=== PATIENT | female | born 1960 | race Caucasian/White ===

== ENCOUNTER 2016-09-12 12:16 | Emergency (ER) | payer OTHER ==
[~2016-09-12] VITALS: Ht 154.9 cm; Wt 96.2 kg
[~2016-09-12 12:16] MED LIST: BUPR150CR PO; PRED20 PO; QUET1TAB10 PO; ZITHTAB PO
[2016-09-12 12:25] VITALS: BP 129/74; PULSE 64; RESP 16; TEMP 98.7; O2SAT 99
[2016-09-12] MEDS ORDERED: AUGM875T PO (13:31)
--- NOTE | 2016-09-12 13:31 | PD ---
HPI Chief Complaint: ENT Complaint Time Seen by Provider: 13:31 Travel History International Travel<30 days: No Contact w/Intl Traveler<30days: No Traveled to known affect area: No History of Present Illness HPI Patient is a 55-year-old female presenting with chief complaint of "I have another sinus infection ". She states she has a history of asthma and frequently this will go down into her chest and cause a bronchitis and asthma flare. She denies any cough or wheezing or asthma-type symptoms. She states that the symptoms have been mild for 4 days but worse over the last 3. Thick purulent rhinorrhea, greater out of the right nostril the left. She reports her maxillary and frontal pressure, worse on the right. She denies fever, chills, nausea or vomiting. She denies chest pain. She was treated 2-3 months prior for similar problem. PFSH Past Medical History Asthma: Yes Bipolar Disorder: Yes Depression: Yes (BIPOLAR) Cancer: No Cardiovascular Problems: Yes Diabetes: No Diminished Hearing: No Headaches: No Herniated Disk: Yes Musculoskeletal: Yes (SCIATIC NERVE PAIN. (CHRONIC)) Psychiatric: Yes (Reported history of treatment for bipolar disorder) Respiratory: Yes (ASTHMA) Integumentary: Yes (HX OF MRSA TO LOW BACK) Seizures: No Thyroid Disease: Yes (HYPO) Ulcer: Yes Influenza Vaccination: No ?: Not Menopausal: Yes Past Surgical History Abdominal Surgery: Yes (PARTIAL GASTRECTOMY) Appendectomy: Yes Cholecystectomy: Yes Neurologic Surgery: Yes (LUMBAR LAMINECTOMY 2004) Other Surgery: Yes ("ULCER SURGERY" 1988) Social History Alcohol Use: Yes ("SOCIALLY") Tobacco Use: No Substance Use: Yes (PSA) Allergies-Medications (Allergen,Severity, Reaction): Coded Allergies: Influenza Virus Vaccine (Verified Allergy, Severe, L arm swollen, 09/12/16) Reglan (Verified Allergy, Severe, Anaphylaxis, 09/12/16) Codeine (Verified Allergy, Intermediate, nausea, 09/12/16) *MDRO Multi-Drug Resistant Organism (Unverified Adverse Reaction, Unknown , 09/12/16) MRSA Reported Meds & Prescriptions Reported Meds & Active Scripts Active Augmentin (Amoxicillin-Clavulanate) 875-125 mg Tab 875 Mg PO BID not for use in CrCl <30 ml/min. Review of Systems Except as stated in HPI: all other systems reviewed are Neg Physical Exam Narrative GENERAL: Well-developed and well-nourished adult female in no acute distress. SKIN: Warm and dry. Good turgor without tenting. HEAD: Normocephalic and atraumatic. EYES: PERRL bilaterally, 5mm. EOMI bilaterally. No injection or icterus present. No proptosis. Lids without edema or erythema. ENT: Bilateral ear canals are non-edematous/non-erythematous without otorrhea. Bilateral TMs have intact landmarks and without distortion, perforation, air- fluid level or erythema. Nasal mucosa erythematous and edematous with thick yellow discharge, septum intact and midline. Reduced transillumination of the right maxillary sinus. Bilateral maxillary sinuses tender to percussion, right greater than left. Buccal mucosa pink and moist. Oropharynx free of erythema, tonsillar hypertrophy, masses, swelling, asymmetry and exudates. Uvula midline and airway patent. NECK: Supple, no meningeal signs. Trachea midline, no JVD. No cervical or facial lymphadenopathy. CARDIOVASCULAR: Regular rate and rhythm without murmurs, rubs, clicks or gallops. RESPIRATORY: Clear to auscultation bilaterally with symmetrical rise and fall, no distress or use of accessory muscles. MUSCULOSKELETAL: No gait disturbances. Patient freely moving all four extremities spontaneously. Extremities without clubbing, cyanosis, or edema. No obvious deformities. NEUROLOGIC: CN II-XII grossly intact. Awake and alert. Motor grossly within normal limits. Normal speech. PSYCHIATRIC: Appropriate mood and affect; insight and judgment normal. Data Data Last Documented VS Vital Signs Date Time Temp Pulse Resp B/P Pulse Ox O2 Delivery O2 Flow Rate FiO2 09/12/16 12:25 98.7 64 16 129/74 99 MDM Medical Decision Making Medical Screen Exam Complete: Yes Emergency Medical Condition: Yes Differential Diagnosis Rhinitis versus sinusitis versus viral syndrome Narrative Course Patient is a 55-year-old female with history and physical suggestive of a recurrent bacterial sinusitis. Patient will be given Augmentin for 10 days and recommend follow-up with ENT specialist next week.See discharge paperwork for further instructions. The plan was discussed with the patient who acknowledged their understanding and agreement. Reinforced the follow-up with primary care is critically important. Patient instructed on emergent conditions that should prompt return to ED. Diagnosis Primary Impression: Acute recurrent maxillary sinusitis Patient Instructions: General Instructions, Sinusitis (ED) Additional Instructions: Take medication as prescribed OTC Mucinex as needed Saline nasal irrigation to help clear mucus OTC Tylenol or Ibuprofen for fever and discomfort Drink lots of fluid to help clear mucous/drainage and stay hydrated Follow up with PCP in 2 days Return to the ED for any acute worsening of symptoms Med/Other Pt SpecificInfo: Prescription(s) given Scripts Amoxicillin-Clavulanate (Augmentin)875-125 mg [id number] Mg PO BID #20 TAB not for use in CrCl <30 ml/min. Prov:Edu Mcconnell MD 09/12/16 Disposition: 01 DISCHARGE HOME Condition: Stable Mark Otoole III Sep 12, 2016 13:31
== END 2016-09-12 14:12 | disposition home or self-care (01) ==
LOC: PHEFT 12:16
DX: J01.01 Acute recurrent maxillary sinusitis (principal); J45.909 Unspecified asthma, uncomplicated
CPT/HCPCS: 99283

== ENCOUNTER 2016-11-22 07:56 | Emergency (ER) | payer OTHER ==
[~2016-11-22] VITALS: Ht 154.9 cm; Wt 99.0 kg
[~2016-11-22 07:56] MED LIST changes: +AUGM875T PO; -BUPR150CR PO; -PRED20 PO; -QUET1TAB10 PO; -ZITHTAB PO
[2016-11-22 07:59] VITALS: BP 148/70; PULSE 77; RESP 16; TEMP 97.5; O2SAT 97
[2016-11-22] MEDS ORDERED: VENTAER INH (08:06)
[2016-11-22] MEDS ORDERED: LEVO.1 PO (08:06)
[2016-11-22] MEDS ORDERED: AUGM875T PO (08:16)
--- NOTE | 2016-11-22 08:16 | PD ---
HPI Chief Complaint: Headache Time Seen by Provider: 08:03 Travel History International Travel<30 days: No Contact w/Intl Traveler<30days: No Traveled to known affect area: No History of Present Illness HPI Is a 56-year-old woman who presents to the emergency department with facial pressure sinus congestion and headache. States she has a history of sinus infections. She has had 2 sinus surgeries in the past. She says she has signs infections every 3 or 4 months. The symptoms been ongoing for the past 10-12 days. She tried [id number] medicines and sinus washes without relief. She states symptoms feel very similar incident similar problems in the past. History Past Medical History Narrative Medical Sinus problems Asthma Influenza Vaccination: No Menopausal: Yes Social History Alcohol Use: Yes ("SOCIALLY") Tobacco Use: No Allergies-Medications (Allergen,Severity, Reaction): Coded Allergies: Influenza Virus Vaccine (Verified Allergy, Severe, L arm swollen, 11/22/16) Reglan (Verified Allergy, Severe, Anaphylaxis, 11/22/16) Codeine (Verified Allergy, Intermediate, nausea, 11/22/16) *MDRO Multi-Drug Resistant Organism (Unverified Adverse Reaction, Unknown , 11/22/16) MRSA Reported Meds & Prescriptions Reported Meds & Active Scripts Active Reported Ventolin Hfa 18 GM Inh (Albuterol Sulfate) 90 Mcg/Act Aer 2 Puff INH Q4-6H PRN Synthroid (Levothyroxine Sodium) 100 Mcg Tab 100 Mcg PO DAILY Review of Systems Except as stated in HPI: all other systems reviewed are Neg Physical Exam Narrative GENERAL: 56-year-old woman, no acute distress. SKIN: Focused skin assessment warm/dry. HEAD: Atraumatic. Normocephalic. EYES: Pupils equal and round. No scleral icterus. No injection or drainage. ENT: No nasal bleeding or discharge. Mucous membranes pink and moist. Sinus pressure and tenderness to percussion. NECK: Trachea midline. No JVD. CARDIOVASCULAR: Regular rate and rhythm. No murmur appreciated. RESPIRATORY: No accessory muscle use. Clear to auscultation. Breath sounds equal bilaterally. GASTROINTESTINAL: Abdomen soft, non-tender, nondistended. Hepatic and splenic margins not palpable. MUSCULOSKELETAL: No obvious deformities. Data Data Last Documented VS Vital Signs Date Time Temp Pulse Resp B/P Pulse Ox O2 Delivery O2 Flow Rate FiO2 11/22/16 07:59 97.5 77 16 148/70 97 [facility] Medical Decision Making Medical Screen Exam Complete: Yes Emergency Medical Condition: Yes Differential Diagnosis Sinusitis, headache, dural vein thrombosis, other Narrative Course Medical decision making 56-year-old woman with sinus congestion and pressure. She is a history of sinusitis. She feels similar. She does not want antibiotics in the past. She has no visual changes. Nothing else to suggest something more sinister. Outpatient follow-up. Diagnosis Primary Impression: Chronic sinusitis Additional Instructions: Take Augmentin as prescribed. Follow up with her primary doctor in the next 2-4 days. Return to the emergency department for any worsening headache, face pain, fevers , or any other new or worsening symptoms. Med/Other Pt SpecificInfo: Prescription(s) given Scripts Amoxicillin-Clavulanate (Augmentin)875-125 mg [id number] Mg PO BID #20 TAB not for use in CrCl <30 ml/min. Prov:Jin Mayorga MD 11/22/16 Disposition: 01 DISCHARGE HOME Condition: Stable Jin Mayorga MD Nov 22, 2016 08:16
== END 2016-11-22 08:27 | disposition home or self-care (01) ==
LOC: PHED 07:56
DX: J32.9 Chronic sinusitis, unspecified (principal)
CPT/HCPCS: 99283

== ENCOUNTER 2017-09-13 18:36 | Emergency (ER) | payer OTHER ==
[~2017-09-13] VITALS: Ht 154.9 cm; Wt 90.0 kg
[~2017-09-13 18:36] MED LIST changes: +LEVO.1 PO; +VENTAER INH
[2017-09-13 18:37] VITALS: BP 134/84; PULSE 107; RESP 16; TEMP 97.8; O2SAT 100
[2017-09-13] MEDS ORDERED: BACT800T5 PO (18:58)
[2017-09-13] MEDS ORDERED: PRED20 PO (19:07)
[2017-09-13] MEDS ORDERED: BENZ100 PO (19:07)
[2017-09-13] MEDS ORDERED: ZITHTAB PO (19:07)
--- NOTE | 2017-09-13 19:07 | PD ---
HPI Chief Complaint: Cold / Flu Symptoms Time Seen by Provider: 18:55 Travel History International Travel<30 days: No Contact w/Intl Traveler<30days: No Traveled to known affect area: No History of Present Illness HPI 56-year-old female complains of coughing wheezing shortness of breath. Patient states that she was diagnosed with a flu 3 weeks ago. Patient states that the symptoms got better and then she started having persistent dry cough for the past 3 days. Patient was seen by a physician 3 days ago and given prescription for Bactrim DS for sinusitis. Patient states that she had persistent cough and wheezing and shortness of breath despite taking the medication. Patient has albuterol inhaler which she used about twice a day. Patient has history of asthma. Patient denies any fever chills. Patient complains of chest wall pain with coughing. Patient denies any abdominal pain. Patient denies any nausea vomiting diarrhea. PFSH Past Medical History Hx Anticoagulant Therapy: No Asthma: Yes Bipolar Disorder: Yes Depression: Yes (BIPOLAR) Cancer: No Cardiovascular Problems: Yes Diabetes: No Diminished Hearing: No Headaches: No Herniated Disk: Yes Musculoskeletal: Yes (SCIATIC NERVE PAIN. (CHRONIC)) Psychiatric: Yes (Reported history of treatment for bipolar disorder) Respiratory: Yes Integumentary: Yes (HX OF MRSA TO LOW BACK) Seizures: No Thyroid Disease: Yes (HYPO) Ulcer: Yes Menopausal: Yes Past Surgical History Abdominal Surgery: Yes (PARTIAL GASTRECTOMY) Appendectomy: Yes Cholecystectomy: Yes Hysterectomy: No Neurologic Surgery: Yes (LUMBAR LAMINECTOMY 2004) Other Surgery: Yes ("ULCER SURGERY" 1988) Social History Alcohol Use: Yes ("SOCIALLY") Tobacco Use: No Substance Use: Yes (PSA) Allergies-Medications (Allergen,Severity, Reaction): Coded Allergies: Influenza Virus Vaccines (Unverified Allergy, Severe, L arm swollen, ) metoclopramide (Unverified Allergy, Severe, Anaphylaxis, 09/13/17) codeine (Unverified Allergy, Intermediate, nausea, 09/13/17) *MDRO Multi-Drug Resistant Organism (Unverified Adverse Reaction, Unknown , 09/13/17) MRSA Reported Meds & Prescriptions Reported Meds & Active Scripts Active Reported Bactrim DS (Sulfamethoxazole-Trimethoprim) 800-160 Mg Tab 1 Tab PO BID Synthroid (Levothyroxine Sodium) 100 Mcg Tab 100 Mcg PO DAILY Review of Systems General / Constitutional: No: Fever Eyes: No: Visual changes HENT: No: Headaches Cardiovascular: No: Chest Pain or Discomfort Respiratory: Positive: Cough, Shortness of Breath, Wheezing Gastrointestinal: No: Abdominal Pain Genitourinary: No: Dysuria Musculoskeletal: No: Pain Skin: No Rash Neurologic: No: Weakness Psychiatric: No: Depression Endocrine: No: Polydipsia Hematologic/Lymphatic: No: Easy Bruising Physical Exam Narrative GENERAL: Well-nourished, well-developed patient. SKIN: Focused skin assessment warm/dry. HEAD: Normocephalic. EYES: No scleral icterus. No injection or drainage. TM: Clear. Throat: Nonerythematous. NECK: Supple, trachea midline. No JVD or lymphadenopathy. CARDIOVASCULAR: Regular rate and rhythm without murmurs, gallops, or rubs. RESPIRATORY: Breath sounds equal bilaterally. No accessory muscle use. Mild to moderate expiratory wheezes bilaterally. No rhonchi. GASTROINTESTINAL: Abdomen soft, non-tender, nondistended. MUSCULOSKELETAL: No cyanosis, or edema. BACK: Nontender without obvious deformity. No CVA tenderness. Data Data Last Documented VS Vital Signs Date Time Temp Pulse Resp B/P (MAP) Pulse Ox O2 Delivery O2 Flow Rate FiO2 09/13/17 18:58 18 96 Room Air 09/13/17 18:37 97.8 107 134/84 (101) Orders Orders Duoneb Q15min X 2 Doses (09/13/17 19:15) Dexamethasone Inj (Decadron Inj) (09/13/17 19:15) MDM Medical Decision Making Medical Screen Exam Complete: Yes Emergency Medical Condition: Yes Differential Diagnosis Differential diagnosis including acute exacerbation of asthma, bronchitis, pneumonia. Narrative Course 56-year-old female with coughing wheezing shortness of breath. History of asthma. Decadron 8 mg IM. Albuterol with Atrovent unit dose treatment 2. Diagnosis Primary Impression: Bronchitis Additional Impression: Acute asthma exacerbation Qualified Codes: J45.41 - Moderate persistent asthma with (acute) exacerbation Patient Instructions: General Instructions Additional Instructions: Use inhaler as needed. Stop Bactrim DS. Z-Sarmad as directed. Tessalon as needed for cough. Follow-up with personal physician. Return if worse. Med/Other Pt SpecificInfo: Prescription(s) given Scripts Prednisone (Prednisone) 20 Mg Tab 20 MG PO BID, #10 TAB 0 Refills Prov: Jorge Luis Dominguez MD 09/13/17 Benzonatate (Tessalon Perles) 100 Mg Cap 200 MG PO TID Y for COUGH, #21 CAP 0 Refills Prov: Jorge Luis Dominguez MD 09/13/17 Azithromycin (Zithromax Z-Sarmad) 250 Mg Dspk 250 MG PO DIRECTED for Infection, #1 DSPK 0 Refills 500 MG (2 tabs) day 1, then 1 tab days 2-5. Prov: Jorge Luis Dominguez MD 09/13/17 Disposition: 01 DISCHARGE HOME Condition: Stable Jorge Luis Dominguez MD Sep 13, 2017 19:07
[2017-09-13 19:11] VITALS: BP 133/73; PULSE 99; RESP 18; O2SAT 98
[2017-09-13] MEDS ORDERED: DEXAMETHASONE SOD PHOS 4 MG/ML VIAL IM ONE (19:15)
[2017-09-13] MEDS: RESP: ALBUTEROL 2.5 MG/IPRATROPIUM 0.5 MG NEB (SCH) INH (19:21)
== END 2017-09-13 20:11 | disposition home or self-care (01) ==
LOC: NEPD 18:36
DX: J45.41 Moderate persistent asthma with (acute) exacerbation (principal); F31.9 Bipolar disorder, unspecified; E03.9 Hypothyroidism, unspecified
CPT/HCPCS: 94640; 94664; 96372; 99284; J1100